=== PATIENT | female | born 1985 | race Caucasian/White ===

== ENCOUNTER → 2017-12-16 | Outpatient (CLI) | payer MEDICAID | LOC: FCPNEURO 23:17 | PROVIDERS: ATTEND Student in an Organized Health Care Education/Training Program | DX: G47.33 Obstructive sleep apnea (adult) (pediatric) (principal) ==

== ENCOUNTER → 2018-02-15 | Outpatient (CLI) | payer MEDICAID | LOC: FIMAGING 09:22 | PROVIDERS: ATTEND Psychiatry & Neurology Neurology | DX: R51 Headache (principal) ==